=== PATIENT | female | born 1950 | race Caucasian/White ===

== ENCOUNTER → 2020-09-13 | Outpatient (CLI) | payer OTHER | LOC: MRI 11:00 | DX: C20 Malignant neoplasm of rectum (principal); D26.1 Other benign neoplasm of corpus uteri; N80.0 Endometriosis of uterus; R93.89 Abnormal findings on diagnostic imaging of other specified body structures | CPT/HCPCS: 72197; A9577 ==

== ENCOUNTER → 2021-02-03 | Outpatient (CLI) | payer OTHER | LOC: CT 13:00 | DX: C20 Malignant neoplasm of rectum (principal) | CPT/HCPCS: 71260; Q9967 ==

== ENCOUNTER → 2021-05-26 | Outpatient (CLI) | payer OTHER | LOC: CT 05-19 11:30 | DX: C20 Malignant neoplasm of rectum (principal) | CPT/HCPCS: Q9967 ==

== ENCOUNTER → 2021-08-31 | Outpatient (CLI) | payer OTHER | LOC: CT 13:41 | DX: C20 Malignant neoplasm of rectum (principal); R91.8 Other nonspecific abnormal finding of lung field ==

== ENCOUNTER → 2021-12-08 | Outpatient (CLI) | payer OTHER | LOC: CT 10:36 | DX: C20 Malignant neoplasm of rectum (principal) | CPT/HCPCS: Q9967 ==